=== PATIENT | male | born 1970 | race Two or more races ===

== ENCOUNTER 2016-06-20 11:11 | Emergency (ER) | payer MEDICARE, MEDICAID ==
[~2016-06-20] VITALS: Ht 182.9 cm; Wt 81.6 kg
--- NOTE | 2016-06-20 11:38 | NUR ---
cece galeano from [facility] in [place] for wound check. Noted patient lleft lower extremity open wound with red and greenish discharges. Per patient he has been on atb for it. Pt with sree santillan with good blood return. Md Pierre at for evaluation
[2016-06-20] MEDS ORDERED: HYDROMORPHONE INJ 2 MG/ML DISP.SYRIN ONE (11:47)
[2016-06-20] MEDS ORDERED: ONDANSETRON HCL/PF 4 MG/2 ML VIAL ONE (11:48)
[2016-06-20 11:54] LABS: BASOPHILS # (AUTO) 0.1 /CMM (0.0-0.2); BASOPHILS % (AUTO) 0.6 % (0.0-2.0); EOSINOPHILS # (AUTO) 0.1 /CMM (0.0-0.7); EOSINOPHILS % (AUTO) 0.6 % (0.0-6.0); HEMATOCRIT 39 % (39-51); HEMOGLOBIN 13.1 g/dL (13.5-17.5); LYMPHOCYTES # (AUTO) 5.5 /CMM (0.8-4.8); LYMPHOCYTES % (AUTO) 36.6 % (20.0-44.0); MEAN CORPUSCULAR HEMOGLOBIN 31 PG (26.0-33.0); MEAN CORPUSCULAR HGB CONC 34 g/dl (31.0-36.0); MEAN CORPUSCULAR VOLUME 93 fL (80-96); MONOCYTES # (AUTO) 1.4 /CMM (0.1-1.30); MONOCYTES % (AUTO) 9.4 % (2.0-12.0); NEUTROPHILS # (AUTO) 7.9 /CMM (1.8-8.9); NEUTROPHILS % (AUTO) 52.8 % (43.0-81.0); PLATELET COUNT (AUTO) 245 /CMM (150-450); RDW COEFFICIENT OF VARIATION 16.8 (11.5-15.0); RED BLOOD CELL COUNT(AUTO) 4.16 MIL/uL (4.5-6.0)
--- NOTE | 2016-06-20 11:58 | NUR ---
CALLED NURSING SUP. FOR [place] BED, TOLD ME TO CALL [facility] FOR A BED
[2016-06-20] MEDS ORDERED: ONDANSETRON HCL/PF - ER 4 MG/2 ML VIAL IV ONE (12:00)
[2016-06-20] MEDS ORDERED: HYDROMORPHONE INJ 2 MG/ML DISP.SYRIN IV ONE (12:00)
[2016-06-20 12:05] LABS: CALCIUM, SERUM 8.7 mg/dL (8.5-10.1); CARBON DIOXIDE 27 mmol/L (21-32); CHLORIDE 96 mmol/L (98-107); CREATININE 0.9 mg/dL (0.6-1.3); GFR 91 mL/min (>60); GLUCOSE 280 mg/dL (74-106); POTASSIUM 3.9 mmol/L (3.5-5.1); SODIUM SERUM 129 mmol/L (136-145); UREA NITROGEN, BLOOD 26 mg/dL (7-18)
[2016-06-20 12:07] LABS: INR 1.17 (0.87-1.13); PROTHROMBIN TIME 12.3 SECS (9.5-12.7)
[2016-06-20 12:12] LABS: TROPONIN I < 0.017 ng/mL (0.00-0.056)
[2016-06-20 12:22] LABS: ALANINE AMINOTRANSFERASE 15 U/L (12-78); ALBUMIN 1.5 g/dL (3.4-5.0); ALKALINE PHOSPHATASE 113 U/L (46-116); ASPARTATE AMINOTRANSFERASE 19 U/L (15-37); BILIRUBIN,DIRECT 0.3 mg/dL (0.0-0.2); BILIRUBIN,TOTAL 0.5 mg/dL (0.2-1.0)
[2016-06-20] MEDS ORDERED: IV NS 0.9% 1,000 ML ONE (12:58)
[2016-06-20] MEDS ORDERED: IV SET PRIMARY PUMP SET 1 EA INFUS.SET MC ONE (12:58)
[2016-06-20] MEDS ORDERED: IV NS 0.9% 1,000 ML IV ONE (13:00)
[2016-06-20 13:32] LABS: LACTIC ACID 1.6 mmol/L (0.4-2.0)
--- NOTE | 2016-06-20 13:37 | NUR ---
CALLED [facility], SPOKE WITH NURSING SUPSandra STERLING, ASKED HER FOR A BED FOR PT, GAVE ME THE BED 214, NUMBER FOR REPORT IS [phone] NURSE IS PETROS
--- NOTE | 2016-06-20 13:40 | NUR ---
[facility] PAGED FOR [place] [place], , FOR TRANSFER OF PT OVER TO [place]
--- NOTE | 2016-06-20 13:51 | NUR ---
CALLED FOR FOOD TRAY
[2016-06-20 14:00] VITALS: BP 138/80
--- NOTE | 2016-06-20 14:42 | NUR ---
CALLED [facility] FOR TRANSPORT TO [facility], ETA 1 HOUR
[2016-06-20] MEDS ORDERED: HYDROMORPHONE 1 MG/1 ML DISP.SYRIN ONE (14:58)
[2016-06-20] MEDS ORDERED: HYDROMORPHONE 1 MG/1 ML DISP.SYRIN IV ONE (15:00)
--- NOTE | 2016-06-20 16:27 | NUR ---
REPORT GIVEN TO [facility] FOR TRANSPORT TO [facility]
== END 2016-06-20 16:29 | disposition short-term general hospital (02) ==
LOC: ER 11:14
DX: L02.416 Cutaneous abscess of left lower limb (principal); E11.9 Type 2 diabetes mellitus without complications; E87.1 Hypo-osmolality and hyponatremia; I10 Essential (primary) hypertension; R79.1 Abnormal coagulation profile
CPT/HCPCS: 36415; 80048; 80076; 83605; 84484; 85025; 85730; 87040 ×2; 87081; 96361; 96374; 96375; 96376; 99285; A4217; A4606; A6402; J1170 ×3; J2405; J7030; Z7610